=== PATIENT | male | born 1935 | race Caucasian/White ===

== ENCOUNTER 2019-05-09 14:32 | Outpatient (CLI) | payer MEDICARE, OTHER | END 2019-05-09 23:59 | disposition home or self-care (01) | LOC: RAD 14:32 | PROVIDERS: ATTEND Nurse Practitioner | DX: I70.0 Atherosclerosis of aorta (principal); J98.4 Other disorders of lung | CPT/HCPCS: 71250 ==

== ENCOUNTER 2020-01-29 16:31 | Emergency (ER) | payer MEDICARE, OTHER ==
[~2020-01-29] VITALS: Ht 182.9 cm; Wt 90.2 kg
--- NOTE | 2020-01-29 17:42 | NUR ---
SUPERVISOR FABRICATION: PT WALKED BACK FROM LOBBY TO ROOM AT THIS TIME. NO ACUTE DISTRESS NOTED AT THIS TIME.
--- NOTE | 2020-01-29 18:39 | NUR ---
tech at beside to start iv and draw labs. pt awaiting mri
[2020-01-29 18:51] LABS: BASOPHILS # (AUTO) 0.02 x10^3/uL (0-0.1); BASOPHILS % (AUTO) 1 % (0-1); EOSINOPHILS # (AUTO) 0.32 x10^3/uL (0-0.4); EOSINOPHILS % (AUTO) 6 % (1-7); LYMPHOCYTES # (AUTO) 1.22 x10^3/uL (1-3.4); LYMPHOCYTES % (AUTO) 25 % (22-44); MD NO; MEAN CORPUSCULAR HEMOGLOBIN 32.3 pg (27.5-34.5); MEAN CORPUSCULAR HGB CONC 33.6 g/dL (33.2-36.2); MEAN CORPUSCULAR VOLUME 96.1 fL (81-97); MEAN PLATELET VOLUME 7.2 fL (7.4-10.4); MONOCYTES # (AUTO) 0.37 x10^3/uL (0.2-0.8); MONOCYTES % (AUTO) 8 % (2-9); NEUTROPHILS # (AUTO) 3.01 x10^3/uL (1.8-6.8); NEUTROPHILS % (AUTO) 61 % (42-75); PLATELET COUNT 184 x10^3/uL (130-400); RED BLOOD COUNT 4.74 x10^6/uL (4.38-5.82); RED CELL DISTRIBUTION WIDTH 14.1 % (9.4-14.8)
--- NOTE | 2020-01-29 18:58 | NUR ---
pt to mri
[2020-01-29 19:01] LABS: ALANINE AMINOTRANSFERASE 23 U/L (12-78); ALBUMIN 3.8 g/dL (3.4-5.0); ANION GAP 6 mmol/L (5-15); CHLORIDE 111 mmol/L (98-107); CREATININE 1.04 mg/dL (0.7-1.3)
[2020-01-29 19:04] LABS: ALKALINE PHOSPHATASE 111 U/L (45-117); BILIRUBIN,TOTAL 0.8 mg/dL (0.2-1.0); TOTAL PROTEIN 7.2 g/dL (6.4-8.2)
--- NOTE | 2020-01-29 19:39 | NUR ---
pt back from mri. in room to check vital signs. pulse ox reading displayed a rate from 30-90. pt placed on monitor tech. bigeminey displayed on monitor. tech at bedside for ekg. made aware.
[2020-01-29 19:42] VITALS: BP 143/67
== END 2020-01-29 21:26 | disposition home or self-care (01) ==
LOC: ED 21:23
DX: J01.90 Acute sinusitis, unspecified (principal); H53.2 Diplopia; R94.31 Abnormal electrocardiogram [ECG] [EKG]; E78.00 Pure hypercholesterolemia, unspecified; Z90.49 Acquired absence of other specified parts of digestive tract; Z87.891 Personal history of nicotine dependence
CPT/HCPCS: 36415; 70551; 70553; 80053; 85025; 93005; 99285

== ENCOUNTER 2020-04-22 12:21 | Emergency (ER) | payer MEDICARE, OTHER ==
[~2020-04-22] VITALS: Ht 182.9 cm; Wt 85.2 kg
--- NOTE | 2020-04-22 13:09 | NUR ---
Pt arrives to ed for lower right leg swelling that extends into the right foot. Pt reports that it is tender but not painful. Pt reports a few years back he had a dvt and was treated for it. Pt reports that he is concerned as his leg swelling has doubled. Pt has weak pedal pulse to right foot that is swollen. Pt denies trauma. Pt is not on blood thinners now. Pt in bed awaiting md rai.
[2020-04-22 13:33] LABS: BASOPHILS % (AUTO) 1 % (0-1); EOSINOPHILS % (AUTO) 4 % (1-7); LYMPHOCYTES % (AUTO) 19 % (22-44); MEAN CORPUSCULAR HEMOGLOBIN 31.3 pg (27.5-34.5); MEAN CORPUSCULAR HGB CONC 33.3 g/dL (33.2-36.2); MEAN PLATELET VOLUME 6.4 fL (7.4-10.4); MONOCYTES % (AUTO) 9 % (2-9); NEUTROPHILS % (AUTO) 68 % (42-75); PLATELET COUNT 247 x10^3/uL (130-400); RED BLOOD COUNT 4.75 x10^6/uL (4.38-5.82); RED CELL DISTRIBUTION WIDTH 14.1 % (9.4-14.8)
[2020-04-22 13:41] LABS: MD NO
[2020-04-22 13:42] LABS: ALBUMIN 3.5 g/dL (3.4-5.0); ANION GAP 6 mmol/L (5-15); CALCIUM 9.2 mg/dL (8.5-10.1); CHLORIDE 109 mmol/L (98-107)
[2020-04-22 13:47] LABS: ALANINE AMINOTRANSFERASE 20 U/L (12-78); ALKALINE PHOSPHATASE 133 U/L (45-117); BILIRUBIN,TOTAL 1.1 mg/dL (0.2-1.0); CREATININE 0.85 mg/dL (0.7-1.3); TOTAL PROTEIN 7.3 g/dL (6.4-8.2)
[2020-04-22 14:34] VITALS: BP 158/89
--- NOTE | 2020-04-22 15:02 | NUR ---
Patient/Caregiver given discharge instructions and they have confirmed that they understand the instructions. Patient ambulatory with steady gait.
== END 2020-04-22 15:04 | disposition home or self-care (01) ==
LOC: ED 14:11
DX: I83.11 Varicose veins of right lower extremity with inflammation (principal); R94.31 Abnormal electrocardiogram [ECG] [EKG]; E78.00 Pure hypercholesterolemia, unspecified; Z90.49 Acquired absence of other specified parts of digestive tract
CPT/HCPCS: 36415; 71045; 80053; 83880; 85025; 93005; 99285

== ENCOUNTER 2020-06-23 10:16 | Outpatient (CLI) | payer MEDICARE, OTHER | END 2020-06-23 23:59 | disposition home or self-care (01) | LOC: CFH 10:16 | PROVIDERS: ATTEND Otolaryngology | DX: J34.2 Deviated nasal septum (principal); J32.4 Chronic pansinusitis; J33.0 Polyp of nasal cavity | CPT/HCPCS: 70486 ==

== ENCOUNTER → 2021-02-27 | Outpatient (CLI) | payer MEDICARE, OTHER ==
[~2021-02-27] MED LIST: REGADENOSON 0.4 MG/5 ML SYRINGE ONE
== END | disposition home or self-care (01) ==
LOC: CFH 07:38
PROVIDERS: ATTEND Internal Medicine Clinical Cardiac Electrophysiology
DX: I10 Essential (primary) hypertension (principal)
CPT/HCPCS: 78452; 93017; A9502; J2785